=== PATIENT | female | born 1980 | race Caucasian/White ===

== ENCOUNTER 2017-04-05 08:00 | Outpatient (CLI) | payer OTHER | END 2017-04-05 08:01 | disposition home or self-care (01) | LOC: BICULT 08:00 | PROVIDERS: ATTEND Physician Assistant | DX: R10.11 Right upper quadrant pain (principal); R11.2 Nausea with vomiting, unspecified; K80.20 Calculus of gallbladder without cholecystitis without obstruction; K76.0 Fatty (change of) liver, not elsewhere classified | CPT/HCPCS: 76705 ==

== ENCOUNTER 2017-04-25 16:29 | Outpatient (CLI) | payer OTHER ==
[2017-04-25 17:00] LABS: Hemoglobin 14.4 g/dL (12.0-16.0); Mean Corpuscular Hemoglobin 35.1 pg (27.0-31.0); Mean Platelet Volume 8.2 fL (7.4-10.4); Platelet Count 145 thou/uL (130-400); RBC Distribution Width 10.8 % (11.5-14.5); Red Blood Cell (RBC) Count 4.09 mill/uL (4.20-5.40); White Blood Cell (WBC) Count 7.6 thou/uL (4.8-10.8)
[2017-04-25 17:03] LABS: BHCG - Serum Negative (NEGATIVE); Pregs Control Background? CLEAR/WHITE (CLR/WHITE); Pregs Control Bar Appear? YES (CONTROL BAR)
[2017-04-25 17:20] LABS: ALT (SGPT) 79 U/L (8-55); AST (SGOT) 69 U/L (5-34); Albumin 4.3 g/dL (3.5-5.0); Alkaline Phosphatase 90 U/L (40-150); Anion Gap 15 mmol/L (10-20); BUN (Urea Nitrogen) 11 mg/dL (7.0-18.7); Bilirubin, Direct 0.7 mg/dL (0.1-0.3); Bilirubin, Total 1.7 mg/dL (0.2-1.2); Calc. Creatinine Clearance 0 mL/min (70-130); Calcium 10.1 mg/dL (7.8-10.44); Carbon Dioxide 23 mmol/L (22-29); Chloride 100 mmol/L (98-107); Estimated GFR-MDRD Greater than 90; Glucose 96 mg/dL (70-105); Potassium 4.1 mmol/L (3.5-5.1); Protein, Total 7.2 g/dL (6.0-8.3); Sodium 134 mmol/L (136-145)
--- NOTE | 2017-04-26 21:21 | EKG ---
Test Reason : Blood Pressure : / mmHG Vent. Rate : 079 BPM Atrial Rate : 079 BPM P-R Int : 132 ms QRS Dur : 080 ms QT Int : 374 ms P-R-T Axes : -22 062 053 degrees QTc Int : 428 ms Normal sinus rhythm Normal ECG When compared with ECG of 29-JAN-2010 00:58, Vent. rate has decreased BY 39 BPM Nonspecific T wave abnormality no longer evident in Inferior leads Confirmed by ELVIS VIEYRA ([id number]) on 04/26/2017 9:21:25 PM Referred By: PRIYA Confirmed By:ELVIS VIEYRA
== END 2017-04-25 16:30 | disposition home or self-care (01) ==
LOC: LABBT 16:29
PROVIDERS: ATTEND Surgery
DX: Z01.812 Encounter for preprocedural laboratory examination (principal); K80.20 Calculus of gallbladder without cholecystitis without obstruction
CPT/HCPCS: 80048; 80076; 84703; 85027; 93005; 93010

== ENCOUNTER 2017-04-28 09:42 | Day surgery (SDC) | payer OTHER ==
[2017-04-25 16:21] VITALS: BMI 38.5
[2017-04-28] MEDS ORDERED: Bupivacaine PF 0.5% 30 ML VIAL ONE (10:54)
[2017-04-28] MEDS ORDERED: Lidocaine 1% w/Epinephrine 1:200K 30 ML VIAL ONE (10:54)
[2017-04-28] MEDS ORDERED: Fentanyl 100 MCG/2 ML VIAL ONE ×3 (11:08→13:40)
[2017-04-28] MEDS ORDERED: Midazolam HCl 2 mg/2 ml Vial ONE (11:08)
[2017-04-28] MEDS ORDERED: CEFAZOLIN/Water 2 GM/20 ML SYRINGE ONE (11:21)
[2017-04-28] MEDS ORDERED: Iothalamate Meglumine 60% 50 ML VIAL FS ONE (11:57)
--- NOTE | 2017-04-28 13:47 | RAD ---
INTRAOPERATIVE CHOLANGIOGRAM: Date: 04/28/17 HISTORY: Cholecystectomy. FINDINGS/IMPRESSION: Two spot fluoroscopic intraoperative images of the right upper quadrant during intraoperative cholang iogram demonstrate contrast opacification in the common duct, right hepatic duct and some of its bran ches, cystic duct remnant, and a small portion of the left hepatic duct. No filling defects are seen. There is contrast in the second portion of the duodenum and opacification of a portion of the pancre atic duct. Surgical instruments are in the field of view. POS: ILAN
[2017-04-28] MEDS ORDERED: Metoclopramide HCl 10 MG/2 ML VIAL ONE (14:07)
[2017-04-28] MEDS ORDERED: Lidocaine 1% PF 5 ML VIAL ONE (14:07)
[2017-04-28] MEDS ORDERED: Dexamethasone 20 MG/5 ML VIAL ONE (14:07)
[2017-04-28] MEDS ORDERED: PROPOFOL 200 MG/20 ML VIAL ONE (14:07)
[2017-04-28] MEDS ORDERED: Ketorolac Tromethamine 30 MG/ML VIAL ONE (14:07)
[2017-04-28] MEDS ORDERED: Ondansetron HCl/PF 4 MG/2 ML Vial ONE (14:07)
[2017-04-28] MEDS ORDERED: Glycopyrrolate 0.2 MG/ML 5 ML SYRINGE ONE (14:07)
[2017-04-28] MEDS ORDERED: HYDROcodone/Acetaminophen 5/325 mg Tablet ONE (14:45)
--- NOTE | 2017-04-28 15:24 | OP ---
DATE OF PROCEDURE: 04/28/2017 PREOPERATIVE DIAGNOSIS: Symptomatic gallstones. POSTOPERATIVE DIAGNOSIS: Symptomatic gallstones. PROCEDURE: Laparoscopic cholecystectomy with intraoperative cholangiogram. SURGEON: Aubrey Clifton M.D. ANESTHESIA: General. ESTIMATED BLOOD LOSS: Minimal. COMPLICATIONS: None. SPECIMEN: Gallbladder. FINDINGS: Normal cholangiogram. TECHNIQUE: The patient was taken to the operating room and placed supine on the table. After genera l anesthetic was obtained, the abdomen was prepped and draped in a sterile fashion. Curved incision made below the umbilicus. Cautery was used to dissect down to and score the fascia. Abdominal cavit y was entered bluntly using a Tea clamp. Holding stitch of PDS was placed on each side of the fasc ia. Arteaga trocar was placed. High-flow pneumoperitoneum was obtained. An upper midline 5-mm port and 2 right upper quadrant 5-mm ports were placed under direct camera visualization. The gallbladder was retracted from the gallbladder fossa. The peritoneum was opened anteriorly and posteriorly. Th e critical view triangle was seen showing only the cystic duct and cystic artery branching from media l to lateral and no other branching structures. A clip was placed high on the cystic duct. A small ductotomy was made just proximal to that. A cholangiocatheter was brought in through a separate stab incision and a cholangiogram was performed which shows good contrast flow into the duodenum. There was good filling of the right and left hepatic duct system without obstruction. Cholangiocatheter wa s removed and 2 clips were placed proximally on the cystic duct and it was cut using laparoscopic sci ssors. Cystic artery was taken in the same way. Cautery was then used to dissect the gallbladder ou t of the gallbladder fossa. The gallbladder was placed in an Endo catch bag and brought out through the Yimi. All port sites were infiltrated using local anesthetic. There was no bleeding or bile i n the liver bed. The right upper quadrant was irrigated using sterile solution. All ports were stephanie phuong under direct visualization. Pneumoperitoneum was let down. PDS was used to close the fascial de fect below the umbilicus. All incisions were irrigated and closed using 4-0 Monocryl and Dermabond. The patient was en route to recovery in stable condition. All instrument counts, needle counts, and lap counts were correct.
== END 2017-04-28 16:13 | disposition home or self-care (01) ==
LOC: SDC 09:42
PROVIDERS: ATTEND Surgery
PROC: BF14YZZ Fluoroscopy of Gallbladder, Bile Ducts and Pancreatic Ducts using Other Contrast (ICD-10-PCS; principal; 2017-04-28)
PROC: 0FT44ZZ Resection of Gallbladder, Percutaneous Endoscopic Approach (ICD-10-PCS; principal; 2017-04-28)
DX: K80.10 Calculus of gallbladder with chronic cholecystitis without obstruction (principal); I10 Essential (primary) hypertension; E66.9 Obesity, unspecified; E28.2 Polycystic ovarian syndrome; Z68.38 Body mass index [BMI] 38.0-38.9, adult; Z79.3 Long term (current) use of hormonal contraceptives; Z79.899 Other long term (current) drug therapy; Z98.891 History of uterine scar from previous surgery
CPT/HCPCS: 47532; 88304; J1100; J1885; J2001; J2250; J2405; J2704; J2765; J3010; Q9961; S0020

== ENCOUNTER 2017-05-05 09:07 | Emergency (ER) | payer OTHER ==
[~2017-05-05 09:07] MED LIST: Iopamidol 370 76% 100 ML VIAL ONE
[2017-05-05] MEDS ORDERED: Lisinopril 10 MG TAB ONE (09:32)
[2017-05-05 09:48] LABS: BHCG - Serum Negative (NEGATIVE); Pregs Control Background? CLEAR/WHITE (CLR/WHITE); Pregs Control Bar Appear? YES (CONTROL BAR)
[2017-05-05 09:53] LABS: Hemoglobin 13.3 g/dL (12.0-16.0); Mean Corpuscular HGB CONC 33.4 g/dL (32.0-36.0); Mean Corpuscular Hemoglobin 32.5 pg (27.0-31.0); Mean Corpuscular Volume 97.1 fl (81.0-99.0); Mean Platelet Volume 9.6 fL (7.4-10.4); Platelet Count 119 thou/uL (130-400); RBC Distribution Width 10.9 % (11.5-14.5); Red Blood Cell (RBC) Count 4.09 mill/uL (4.20-5.40); White Blood Cell (WBC) Count 6.1 thou/uL (4.8-10.8)
[2017-05-05 09:56] LABS: ALT (SGPT) 272 U/L (8-55); AST (SGOT) 301 U/L (5-34); Albumin 3.9 g/dL (3.5-5.0); Alkaline Phosphatase 93 U/L (40-150); Anion Gap 15 mmol/L (10-20); BUN (Urea Nitrogen) 10 mg/dL (7.0-18.7); Calc. Creatinine Clearance 0 mL/min (70-130); Calcium 9.6 mg/dL (7.8-10.44); Carbon Dioxide 21 mmol/L (22-29); Chloride 106 mmol/L (98-107); Estimated GFR-MDRD Greater than 90; Glucose 188 mg/dL (70-105); Lipase 53 U/L (8-78); Protein, Total 6.9 g/dL (6.0-8.3); Sodium 138 mmol/L (136-145)
[2017-05-05 10:07] LABS: #Basophils 0.1 thou/uL (0.0-0.2); #Eosinphils 0.4 thou/uL (0.0-0.7); #Lymphocytes 1.2 thou/uL (1.20-3.40); #Monocytes 0.6 thou/uL (0.11-0.59); #Neutrophils 3.8 thou/uL (1.40-6.50); %Basophils 1.3 % (0.0-1.0); %Eosinophils 6.9 % (0.0-10.0); %Lymphocytes 19.7 % (21.0-51.0); %Monocytes 10.1 % (0.0-10.0); PLT Morphology Comment Appears Decreased; RBC Morphology Normal
[2017-05-05 10:21] LABS: Bilirubin Negative (Negative); Blood, Urine Small (Negative); Clarity Clear (Clear); Glucose, Urine (Dipstick) Negative (Negative); Leukocyte Negative (Negative); Nitrite Negative (Negative); Protein, Urine (Dipstick) Negative (Neg-Trace); Urobilinogen 0.2 mg/dL (0.2-1.0); pH, Urine 6.5 (5.0-9.0)
[2017-05-05 10:31] LABS: Bacteria/HPF None Seen HPF (None Seen); RBC/HPF 0-3 HPF (0-3); Squamous Epithelial 0-3 HPF (0-3); WBC/HPF 0-3 HPF (0-3)
--- NOTE | 2017-05-05 11:30 | CT ---
CT PULMONARY ANGIOGRAM WITH IV CONTRAST AND 3D POSTPROCESSING: HISTORY: Shortness of breath. The patient had a cholecystectomy 1 week ago. FINDINGS: The pulmonary arterial vasculature is well opacified without filling defects to suggest pulmonary emb olism. The thoracic aorta is also well opacified without aneurysm or dissection. No pleural or christin cardial effusions are seen. No pneumothoraces, focal areas of consolidation, lung masses or nodules are identified. No acute osseous abnormalities are identified. IMPRESSION: No CT evidence of pulmonary embolism. POS: ILAN
--- NOTE | 2017-05-05 11:47 | CT ---
CT OF ABDOMEN AND PELVIS PERFORMED WITH INTRAVENOUS CONTRAST ENHANCEMENT: HISTORY: The patient is status post cholecystectomy approximately a week ago. Pain in the right upper quadran t associated with nausea. FINDINGS: Lung bases are clear. The liver shows a suggestion of fatty change. It measures 22 cm in length. The spleen measures 14 c m. Pancreas region is unremarkable. There are postoperative changes with cholecystectomy change see n. There is some minimal fluid and inflammatory change in the region of the gallbladder fossa which is consistent with the recent surgery. There is some minimal fluid in the right paracolic gutter. Right and left adrenal glands are normal in appearance. Right and left kidneys are normal in size. Hypodensities involving the kidneys were statistically most likely tiny cysts. There is no significa nt periaortic or mesenteric adenopathy. CT OF PELVIS PERFORMED WITH CONTRAST ENHANCEMENT: The appendix is normal in size. It is retrocecal in location. Here is a mild amount of fluid within the cul-de-sac region which is compatible with recent surgery. There are small follicles involving the adnexa. IMPRESSION: 1. Postop cholecystectomy change. No evidence of any significant fluid collection or evidence of an y type of abscess in the gallbladder fossa. There is some free fluid within the cul-de-sac region wh ich is also compatible with recent surgery. 2. Fatty changes of the liver with some mild hepatosplenomegaly. POS: C
== END 2017-05-05 12:00 | disposition home or self-care (01) ==
LOC: SCSER 09:07
DX: G89.18 Other acute postprocedural pain (principal); K76.0 Fatty (change of) liver, not elsewhere classified; I10 Essential (primary) hypertension; Z79.899 Other long term (current) drug therapy
CPT/HCPCS: 71275; 74177; 80053; 81003; 81015; 83690; 84703; 85025; 96360

== ENCOUNTER 2017-05-10 12:59 | Outpatient (CLI) | payer OTHER ==
--- NOTE | 2017-05-10 15:24 | NM ---
HIDA SCAN: INDICATION: History of cholecystectomy with pain in the right upper quadrant with nausea. RADIOPHARMACEUTICAL: 5.1 mCi Technetium 99m Mebrofenin IV. FINDINGS: Immediate images demonstrate uptake of the radiotracer within the liver. There is bowel activity dem onstrated by the 7 minute time melvin. There is no evidence to suggest the presence of bile leak. IMPRESSION: No evidence of bile leak. POS: YAHAIRA
== END 2017-05-10 13:00 | disposition home or self-care (01) ==
LOC: NM 12:59
PROVIDERS: ATTEND Surgery
DX: K83.8 Other specified diseases of biliary tract (principal)
CPT/HCPCS: 78226; A9537